=== PATIENT | female | born 1975 | race Two or more races ===

== ENCOUNTER 2017-11-03 13:13 | Inpatient (IN) | payer MEDICAID ==
[2017-11-03] VITALS (12 sets, daily range): BP systolic 114–151; BP diastolic 63–77
[~2017-11-03] VITALS: Ht 157.5 cm; Wt 94.8 kg
[2017-11-03] MEDS ORDERED: SODIUM CHLORIDE 0.9% 1,000 ML IV ONE (13:40)
[2017-11-03 13:58] LABS: Basophils # (auto) 0 uL; Basophils % (auto) 0.6 % (0.0-2.0); Eosinophils # (auto) 0.1 uL; Neutrophils # (auto) 3.6 uL; White Blood Cell 6.4 10^3/uL (4.4-10.8)
[2017-11-03 13:59] LABS: Eosinophils % (auto) 1.2 % (0.0-7.0); Hematocrit 18.7 % (36.0-46.0); Lymphocytes # (auto) 2.3 uL; Lymphocytes % (auto) 35.8 % (10.0-50.0); Mean Corpuscular Hemoglobin 27.2 pg (28.0-32.0); Monocytes # (auto) 0.3 uL; Monocytes % (auto) 5.4 % (0.0-12.0); Nucleated Red Blood Cells % 0.2 %; Platelet Count (auto) 266 10^3/uL (140-450); Urine WBC None Seen /hpf (0 - 5)
[2017-11-03 14:19] LABS: INR 1.06 (0.9-1.15); Partial Thromboplastin Time 25.1 sec (23.78-33.04); Prothrombin Time 11.3 sec (9.27-12.13)
[2017-11-03 14:21] LABS: Alanine Aminotransferase 26 U/L (13-56); Albumin 2.9 g/dL (3.4-5.0); Alkaline Phosphatase 99 U/L (45-117); Anion Gap 9 (5-15); Aspartate Aminotransferase 15 U/L (15-37); BUN/Creatinine Ratio 13.7; Bilirubin, Total 0.3 mg/dL (0.2-1.0); Blood Urea Nitrogen 10 mg/dL (7-18); Calcium 7.8 mg/dL (8.5-10.1); Carbon Dioxide 21 mmol/L (21-32); Chloride 108 mmol/L (98-107); GFR African American 112 mL/min; GFR Non-African American 92 mL/min; Glucose 289 mg/dL (74-106); Sodium 138 mmol/L (136-145)
[2017-11-03 14:24] LABS: Urine Bacteria NONE SEEN /hpf (None Seen); Urine Blood 3+ /uL (Negative); Urine Mucus FEW (None Seen); Urine Specific Gravity 1.018 (1.001-1.035)
[2017-11-03] MEDS ORDERED: DEXTROSE (50%) 50ML SYRG IV PRN (15:30)
[2017-11-03 15:53] LABS: % Iron Saturation 7.1 % (15-50)
[2017-11-03] MEDS: ACCU-CHEK COMFORT CURVE STRIP VI SCH ×2 (18:27→21:14)
[2017-11-03] MEDS: FERROUS SULFATE 325 MG TAB PO SCH (18:29)
[2017-11-03] MEDS: InsuLIN REG 1unit/0.01ml Soln (100units/ml) SC SCH ×2 (18:29→21:37)
[2017-11-03] MEDS ORDERED: HYDROcodone-ACET 5/325MG TAB PO PRN (21:00)
[2017-11-04 00:21] VITALS: BP 127/66
[2017-11-04 01:21] VITALS: BP 127/76
[2017-11-04 05:03] VITALS: BP 106/61
[2017-11-04 06:54] LABS: Hemoglobin 8.2 g/dL (12.2-16.2)
[2017-11-04 06:57] LABS: Hematocrit 24.8 % (36.0-46.0); Mean Corpuscular Hemoglobin 28.2 pg (28.0-32.0); Mean Corpuscular Hgb Conc. 32.9 g/dL (32.0-36.0); Mean Corpuscular Volume 85.5 fL (80.0-100.0); Platelet Count (auto) 227 10^3/uL (140-450); Red Cell Distribution Width 16.1 % (11.8-14.3); White Blood Cell 8.3 10^3/uL (4.4-10.8)
[2017-11-04 07:11] LABS: Basophils % (manual) 0 (0.0-2.0); Blast Cells 0; Eosinophils % (manual) 0 (0-7); Metamyelocytes % 0; Myelocytes % 0; Promyelocytes % 0; Reactive Lymphocytes 0
[2017-11-04 07:13] LABS: BUN/Creatinine Ratio 17.3; Calcium 7.8 mg/dL (8.5-10.1); Potassium 3.6 mmol/L (3.5-5.1)
[2017-11-04 08:08] LABS: Band Neutrophils % (manual) 1; Lymphocytes % (manual) 32 (10.0-50.0); Monocytes % (manual) 4 (0-12)
[2017-11-04 08:13] VITALS: BP 131/64
[2017-11-04] MEDS: FERROUS SULFATE 325 MG TAB PO SCH (10:19)
[2017-11-04 12:00] VITALS: BP 123/66
== END 2017-11-04 13:07 | disposition home or self-care (01) | DRG 532 ==
LOC: ER 13:13 → OVERFLOW 13:14 → WEST WING 20:23
PROVIDERS: ADMIT Internal Medicine; ATTEND Internal Medicine
PROC: 30233N1 Transfusion of Nonautologous Red Blood Cells into Peripheral Vein, Percutaneous Approach (ICD-10-PCS; principal; 2017-11-03)
DX: D25.1 Intramural leiomyoma of uterus (principal); E66.9 Obesity, unspecified; N92.0 Excessive and frequent menstruation with regular cycle; D50.0 Iron deficiency anemia secondary to blood loss (chronic); Z83.3 Family history of diabetes mellitus; Z68.38 Body mass index [BMI] 38.0-38.9, adult
CPT/HCPCS: 36415; 36430; 71046; 76856; 80048; 80053; 81001; 82962; 83036; 83540; 83550; 84484; 85007; 85025; 85027; 85610; 85730; 86850; 86900; 86901; 86920; 96360; J1815